=== PATIENT | male | born 1980 | race Caucasian/White ===

== ENCOUNTER 2021-03-16 12:34 | Inpatient (IN) | payer OTHER, SELFPAY ==
[~2021-03-16] VITALS: Ht 170.2 cm; Wt 68.0 kg
[2021-03-16 12:46] VITALS: BP 106/63
--- NOTE | 2021-03-16 12:59 | NUR ---
PT AMBULATED TO BED 01.
--- NOTE | 2021-03-16 12:59 | NUR ---
40/m bib self C/O COUGH,GOODE, SORE THROT,FEVER X 1.5 WEEK AND C/O SOB X 3 DAYS. COVID TESTED + 03/08/21. SEEN AT [facility] FOR COVID 19 & PNEUMONIA. O2SAT 93% AT THIS TIME. PMH: DENIES. DENIES N/V/D; SKIN IS PINK/WARM/DRY; AAOX4 WITH EVEN AND STEADY GAIT. PATIENT STATES PAIN OF 10/10 AT THIS TIME. PATIENT POSITIONED FOR COMFORT; HOB ELEVATED; BEDRAILS UP X1; BED DOWN. ER MD MADE AWARE OF PT STATUS.
--- NOTE | 2021-03-16 13:55 | NUR ---
PT RESTNG, HOB LOWERED FOR COMFORT, VSS, WILL CONTINUE TO MONITOR.
--- NOTE | 2021-03-16 14:01 | NUR ---
DR. DELUCA AT PT BEDSIDE FOR FURTHER EVALUATION.
[2021-03-16] MEDS ORDERED: DEXAMETHASONE 4 MG/ML VIAL IVP ONE (14:10)
--- NOTE | 2021-03-16 14:34 | NUR ---
MAINSPRING STRIP INSPECTOR AT PT BEDSIDE.
--- NOTE | 2021-03-16 14:43 | NUR ---
RT AT PT BEDSIDE FOR ABGS.
--- NOTE | 2021-03-16 14:54 | NUR ---
INCENDIARIES SUPERVISOR AT PT BEDSIDE.
--- NOTE | 2021-03-16 15:00 | NUR ---
PT SLEEPING, VISIBLE EQUAL RISE AND FALL OF CHEST, VSS, WILL CONTINUE TO MONITOR.
[2021-03-16 15:05] LABS: BASOPHILS % (AUTO) 0.2 % (0.0-2.0); EOSINOPHILS % (AUTO) 0.2 % (0.0-4.0); HEMOGLOBIN 13.8 g/dL (12.0-18.0); LYMPHOCYTES # (AUTO) 0.6 K/uL (2.0-11.5); LYMPHOCYTES % (AUTO) 18.8 % (20.5-51.1); MEAN CORPUSCULAR HEMOGLOBIN 30 pg (27-31); MEAN CORPUSCULAR HGB CONC 34 g/dL (33-37); MEAN CORPUSCULAR VOLUME 89.4 fL (80-94); MONOCYTES # (AUTO) 0.1 K/uL (0.8-1.0); MONOCYTES % (AUTO) 3.5 % (1.7-9.3); NEUTROPHILS # (AUTO) 2.6 K/uL (1.8-7.7); NEUTROPHILS % (AUTO) 77.3 % (42.2-75.2); PLATELET COUNT (AUTO) 109 K/uL (140-450); RED BLOOD CELL COUNT(AUTO) 4.59 MIL/uL (4.20-6.10); RED CELL DISTRIBUTION WIDTH 13.3 % (11.6-13.7); WHITE BLOOD COUNT (AUTO) 3.3 K/uL (4.8-10.8)
[2021-03-16 15:29] LABS: ALBUMIN 3.2 g/dL (3.4-5.0); ANION GAP 10.5 (8-16); CARBON DIOXIDE 29.1 mmol/L (21-32); POTASSIUM 3.6 mmol/L (3.5-5.1); TOTAL BILIRUBIN 0.3 mg/dL (0.0-1.0)
[2021-03-16 15:32] LABS: FIBRINOGEN 438 mg/dL (200-400)
[2021-03-16 15:44] LABS: D-DIMER 166 ng/ml (0-400)
--- NOTE | 2021-03-16 17:03 | NUR ---
EMPTIED 750ML OF CLEAR, YELLOW URINE WITH NO SEDIMENT PRESENT.
[2021-03-16] MEDS ORDERED: ONDANSETRON 4 MG/2 ML VIAL IVP PRN (17:25)
[2021-03-16] MEDS ORDERED: HYDROcodone/APAP 5/325 MG 1 TAB TAB PO PRN (17:25)
[2021-03-16] MEDS ORDERED: remdesivir COMMUNICATION ORDER 1 EA MISC MC PRN ×2 (17:30)
--- NOTE | 2021-03-16 17:43 | NUR ---
Patient will be admitted to care of Dr. Mcnair. Admited to TELE. Will go to room 118. Belongings list completed. Report to
--- NOTE | 2021-03-16 17:45 | NUR ---
RECEIVED PATIENT REPORT FROM ER NURSE OVER THE PHONE.
[2021-03-16 17:56] VITALS: BP 127/67
--- NOTE | 2021-03-16 17:56 | NUR ---
RECEIVED PATIENT FROM ER NURSE VIA SHERYL. PATIENT ADMITTED FOR COVID AND PNA. PT IS AOX4, ABLE TO MAKE NEEDS KNOWN. RESPIRATIONS EVEN AND UNLABORED. NO S/S OF RESPIRATORY DISTRESS. SKIN IS WARM, DRY, AND INTACT. IV SITE ON JEN 20G SALINE LOCKED. INTACT AND PATENT. ABD SOFT, FLAT AND NON-DISTENDED. BOWEL SOUNDS ACTIVE IN ALL 4 QUADRANTS. DENIES PAIN AT THE MOMENT. PLAN OF CARE DISCUSSED. SAFETY PRECAUTIONS IN PLACE. CALL LIGHT WITHIN REACH. WILL CONTINUE TO MONITOR.
[2021-03-16 18:12] LABS: ALBUMIN 3.3 g/dL (3.4-5.0); BILIRUBIN,DIRECT 0.1 mg/dL (0.0-0.3); TOTAL BILIRUBIN 0.3 mg/dL (0.0-1.0)
[2021-03-16] MEDS: DEXAMETHASONE 4 MG/ML VIAL IVP SCH (18:25)
[2021-03-16] MEDS ORDERED: cefTRIAXone 1,000 MG VIAL ONE (18:26)
[2021-03-16] MEDS ORDERED: AZITHROMYCIN 500 MG INJ VIAL IV ONE (19:08)
[2021-03-16] MEDS: AZITHROMYCIN 500 MG in DEXTROSE 5% 250 ML IV SCH (19:24)
--- NOTE | 2021-03-16 19:29 | NUR ---
ENDORSED TO PLANT HEALTH CARE TECHNICIAN NURSE FOR CONTINUITY OF CARE. PT IS STABLE.
--- NOTE | 2021-03-16 19:30 | NUR ---
RECEIVED REPORT FROM DAY SHIFT RN; PT AWAKE ALERT ORIENTED X3 FOLLOWING COMMANDS. PT AMB IN ROOM, MILD WEAKNESS NOTED. LUNGS DIMINISHED; SOB WITH EXERTION. PT FOUND TO HAVE CANNULA OFF, REINSTRUCTED TO PLACE NASAL CANNULA AND USE DEEP BREATHING TECHNIQUES. ABD SOFT NON DISTENDED. TOLERATING PO INTAKE. PT VOIDING IN RESTROOM. IV TO RUPPER ARM NOTED 20 G. BED LOCKED IN LOWEST POSITION. CALL LIGHT WITHIN REACH.
[2021-03-16 20:00] VITALS: BP 121/66
[2021-03-16] MEDS: APIXABAN 2.5 MG TAB PO SCH (20:54)
--- NOTE | 2021-03-16 21:35 | NUR ---
PT IN ROOM REQUESTING TO USE RESTROOM, FOUND TO HAVE CANNULA OFF. REINFORCED IMPORTANCE OF SUPP OXYGEN. PT AGREEABLE. WILL CONTINUE TO OBSERVE
--- NOTE | 2021-03-16 23:30 | NUR ---
ASSISTED PT TO BATHROOM, PT HELPED BACK TO BED VOIDED X1, PT STATED HE FELT SOB VS CHECKED, O2 78 % ON ROOM AIR, NASAL CANNULA PLACED BACK ON PT 2L PT 84-86%. INCREASED TO 4L PT NOW 91%. WILL CONTINUE TO OBSERVE.
[2021-03-17] VITALS: BP 118/65
--- NOTE | 2021-03-17 02:15 | NUR ---
PT HAS EYES CLOSED; AROUSABLE, DENIES CP SOB. WILL CONTINUE TO OBSERVE
--- NOTE | 2021-03-17 04:18 | NUR ---
PT AMB TO RESTROOM NO S/S OF DISTRESS NOTED.
[2021-03-17 06:12] VITALS: BP 121/71
--- NOTE | 2021-03-17 06:17 | NUR ---
REINFORCED NEED FOR SUPPLEMENTAL OXYGEN, PT FORGETS, AND TAKES OFF CANNULA. PT AGREEABLE TO KEEP IT ON, WILL CONTINUE TO OBSERVE
[2021-03-17 06:41] LABS: BASOPHILS % (AUTO) 0.2 % (0.0-2.0); HEMATOCRIT 40.7 % (36-52); HEMOGLOBIN 13.8 g/dL (12.0-18.0); LYMPHOCYTES # (AUTO) 0.4 K/uL (2.0-11.5); LYMPHOCYTES % (AUTO) 9.5 % (20.5-51.1); MEAN CORPUSCULAR HEMOGLOBIN 30 pg (27-31); MEAN CORPUSCULAR HGB CONC 34 g/dL (33-37); MONOCYTES # (AUTO) 0.1 K/uL (0.8-1.0); MONOCYTES % (AUTO) 2.3 % (1.7-9.3); PLATELET COUNT (AUTO) 131 K/uL (140-450); RED BLOOD CELL COUNT(AUTO) 4.57 MIL/uL (4.20-6.10); RED CELL DISTRIBUTION WIDTH 13.2 % (11.6-13.7); WHITE BLOOD COUNT (AUTO) 4.6 K/uL (4.8-10.8)
--- NOTE | 2021-03-17 07:23 | NUR ---
REPORT GIVEN TO DAY SHIFT FOR CONTINUITY OF CARE
--- NOTE | 2021-03-17 07:23 | NUR ---
RECEIVED REPORT FROM MAGNETO REPAIRER NURSE FOR CONTINUITY OF CARE, POC DISCUSSED. PT IS RESTING IN BED WITH NO ACUTE S/S WITH 4L O2 NC ON. PT DENIES PAIN AT THIS TIME. PT IS IS ALERT AND ORIENTED X4. PT CHEST RISING AND FALLING EVEN AND UNLABORED WITH NO S/S OF SOB. PT HAS A RIGHT AC 20G RUNNING TKO. ALL SAFETY MEASURES IN PLACE. CALL LIGHT WITHIN REACH. WILL CONTINUE TO MONITOR.
[2021-03-17 07:30] LABS: ALBUMIN 3.2 g/dL (3.4-5.0); BILIRUBIN,DIRECT 0.1 mg/dL (0.0-0.3); TOTAL BILIRUBIN 0.2 mg/dL (0.0-1.0)
[2021-03-17 07:31] LABS: ALBUMIN 3.2 g/dL (3.4-5.0); ANION GAP 13.3 (8-16); CARBON DIOXIDE 26.7 mmol/L (21-32); CREATININE 0.9 mg/dL (0.6-1.3); MAGNESIUM 2.2 mg/dL (1.8-2.4); TOTAL BILIRUBIN 0.2 mg/dL (0.0-1.0)
[2021-03-17 08:00] VITALS: BP 116/73
--- NOTE | 2021-03-17 08:08 | NUR ---
SATURATION FLUCTUATING 88%-89% ON SUPPLEMENTAL OXYGEN AT 4 LPM VIA NC INCREASED FIO2 TO 5 LPM
--- NOTE | 2021-03-17 08:46 | NUR ---
PATIENT HAS BEEN SCREENED AND CATEGORIZED MODERATE NUTRITION RISK. PATIENT WILL BE SEEN WITHIN 3-5 DAYS OF ADMISSION. 03/19/21 03/21/[address]
--- NOTE | 2021-03-17 09:48 | NUR ---
KAYODE MEDICATION ADMINISTERED PER MD ORDER. PT EDUCATION PROVIDED. PT IS ON 5L NC SATING AT 94%. PT EDUCATION PROVIDED ON IMPORTANCE OF KEEPING OXYGEN ON. PT REPORTS SOB UPON AMBULATING. PT REPORTS ALL NEEDS ARE MET AT THIS TIME. PT SAFETY MEASURES IN PLACE, CALL LIGHT WITHIN REACH. WILL CONTINUE TO MONITOR.
[2021-03-17] MEDS: APIXABAN 2.5 MG TAB PO SCH ×2 (09:53→21:00)
--- NOTE | 2021-03-17 11:08 | NUR ---
ROUNDED ON PT, PT IS RESTING COMFORTABLE IN BED WITH NO ACUTE S/S. PT IS ON 5L NC SATING AT 94%.
[2021-03-17 12:00] VITALS: BP 159/56
[2021-03-17] MEDS ORDERED: REMDESIVIR. 200 MG in NACL 0.9% 100 ML IV SCH (13:00)
[2021-03-17] MEDS ORDERED: remdesivir CLINICAL MONITORING 1 EA MISC MC PRN (13:00)
--- NOTE | 2021-03-17 13:29 | NUR ---
SCD MEDICATION ADMINISTERED PER MD ORDER. PT TOLERATED ADMINISTRATION. ALL SAFETY MEASURES IN PLACE. CALL LIGHT WITHIN REACH. WILL CONTINUE TO MONITOR
--- NOTE | 2021-03-17 14:08 | NUR ---
PROVIDED PT WITH A BEDSIDE COMMODE TO DECREASE DISTANCE PT HAS TO AMBULATE TO USE THE RESTROOM. EVEN WITH O2 MACHINE PROGRAMMER, BEDSIDE COMMODE IS MORE INDICATED TO DECREASE SOB.
[2021-03-17 16:00] VITALS: BP 135/67
[2021-03-17] MEDS: DEXAMETHASONE 4 MG/ML VIAL IVP SCH (17:36)
--- NOTE | 2021-03-17 17:54 | NUR ---
KAYODE MEDICATION ADMINISTERED PER MD ORDER. PT TOLERATED ADMINISTRATION. ALL SAFETY MEASURES IN PLACE. CALL LIGHT WITHIN REACH. WILL CONTINUE TO MONITOR.
[2021-03-17] MEDS: AZITHROMYCIN 500 MG in DEXTROSE 5% 250 ML IV SCH (18:21)
--- NOTE | 2021-03-17 18:32 | NUR ---
PT HAS BEEN TRANSFERRED FROM ROOM 118 TO ROOM 130. 118 TO HOT AND UNABLE TO COOL ROOM DOWN. PT WAS TRANSFERRED IN A WHEELCHAIR AND PORTABLE OXYGEN TANK. PT WAS PLACED BACK ON 6L NC. PT REPORTED CONTINUOUS COUGHING AND SOB DURING TRANSFER BUT REMAINED STABLE. PT CONTINUED TO WEAR FACEMASK THROUGH TRANSFER. PT WAS PLACED IN A NEW ISOLATION ROOM. PT BACK IN BED AND STABLE, BACK ON 6L NC WITH IV FLUIDS RUNNING. ALL BELONGINGS TRANSFERRED WITH PATIENT. PT O2 SATURATION BACK TO 92%. BEDSIDE COMMODE PLACED NEXT TO PT, PT PROVIDED WITH FRESH WATER AND WIPES. PT IS STABLE. ALL SAFETY MEASURES IN PLACE. CALL LIGHT WITHIN REACH. WILL CONTINUE TO MONITOR.
--- NOTE | 2021-03-17 19:02 | NUR ---
PT WILL BE ENDORSED TO PUTTY AND PATCH WORKER NURSE FOR CONTINUITY OF CARE IN STABLE CONDITION, POC DISCUSSED.
--- NOTE | 2021-03-17 19:10 | NUR ---
RECEIVED PATIENT FROM AM SHIFT NURSE FOR CONTINUITY OF CARE. ALERT, ABLE TO MAKE NEEDS KNOWN. RESPIRATIONS EVEN, SLIGHTLY LABORED UPON EXERTION. NO S/S RESPIRATORY DISTRESS. CONTINUES ON O2 6L VIA NC, O2 SAT 93%. S1/S2 AUSCULTATED. TELE MONITORING. DENIES PAIN. SKIN WARM, DRY. IV SITE TO RIGHT AC 20G PATENT/INTACT, INFUSING FLUIDS WELL. ABDOMEN SOFT, NONTENDER, NONDISTENDED. BOWEL SOUNDS ACTIVE x4 QUADRANTS. PATIENT IS CONTINENT OF B/B. CALL LIGHT IN REACH. PLAN OF CARE DISCUSSED. ISOLATION PRECAUTIONS OBSERVED. SAFETY PRECAUTIONS IN PLACE.
[2021-03-17 20:00] VITALS: BP 134/74
--- NOTE | 2021-03-17 21:45 | NUR ---
DUE MEDS GIVEN. NO S/S RESPIRATORY DISTRESS. O2SAT 93%. DENIES PAIN. PATIENT IS CLEAN/DRY. CALL LIGHT IN REACH. ISOLATION PRECAUTIONS OBSERVED. SAFETY PRECAUTIONS IN PLACE.
[2021-03-17] MEDS ORDERED: TEMAZEPAM 15 MG CAP ONE (22:00)
[2021-03-17] MEDS: TEMAZEPAM 15 MG CAP PO SCH (22:03)
--- NOTE | 2021-03-17 23:27 | NUR ---
PLACED PATIENT ON O2 10L VIA OXIMIZER. O2SAT 91-92%. RT AWARE. FREQUENT ROUNDS BY ALL STAFF. CALL LIGHT IN REACH. ISOLATION PRECAUTIONS OBSERVED. SAFETY PRECAUTIONS IN PLACE.
[2021-03-18] VITALS: BP 145/69
--- NOTE | 2021-03-18 01:06 | NUR ---
MADE ROUNDS. PATIENT IS ASLEEP. NO S/S RESPIRATORY DISTRESS. PATIENT IS CLEAN/DRY. CALL LIGHT IN REACH. ISOLATION PRECAUTIONS OBSERVED. SAFETY PRECAUTIONS IN PLACE.
--- NOTE | 2021-03-18 03:11 | NUR ---
PATIENT IS ASLEEP. NO S/S RESPIRATORY DISTRESS. PATIENT IS CLEAN/DRY. CALL LIGHT IN REACH. SAFETY PRECAUTIONS IN PLACE. ISOLATION PRECAUTIONS OBSERVED BY ALL STAFF.
[2021-03-18 04:00] VITALS: BP 93/59
--- NOTE | 2021-03-18 05:05 | NUR ---
ALL NEEDS ANTICIPATED AND MET. NO S/S RESPIRATORY DISTRESS. NO C/O PAIN. PATIENT IS CLEAN/DRY. CALL LIGHT IN REACH. SAFETY PRECAUTIONS IN PLACE. ISOLATION PRECAUTIONS OBSERVED BY ALL STAFF.
--- NOTE | 2021-03-18 07:14 | NUR ---
ENDORSED PATIENT TO AM SHIFT NURSE FOR CONTINUITY OF CARE.
--- NOTE | 2021-03-18 07:24 | NUR ---
PT ENDORSED BY APPLICATION ARCHITECT FOR CONTINUITY OF CARE, POC DISCUSSED. PT IS RESTING IN BED. EDUCATED ON PRONE POSITION, PT STATES HE FEELS WORSE LIKE THAT. EDUCATED ON IMPORTANCE OF THE POSITION, PT STATED HE WILL TRY AFTER BREAKFAST. PT IS ON OXIMETER AT 10L. SPOKE WITH JIHAN MORIN, WILL PLACE PT ON HIGH FLOW. PT IS CURRENTLY SATING AT 90%. PT PLACED ON CONTINUOUS O2 MONITOR AND TELE MONITOR. ALL SAFETY MEASURES IN PLACE, CALL LIGHT WITHIN REACH. WILL CONTINUE TO MONITOR.
[2021-03-18 07:30] LABS: ALBUMIN 3.1 g/dL (3.4-5.0); BILIRUBIN,DIRECT 0.1 mg/dL (0.0-0.3); TOTAL BILIRUBIN 0.2 mg/dL (0.0-1.0)
--- NOTE | 2021-03-18 07:58 | NUR ---
ASLEEP EASILY AWAKENS GOOD CHEST RISE AIRWAY PATENT NO DISTRESS NOTED BREATH SOUNDS DECREASED BILATERAL SINCE 03/16/21 DESCENDING SATURATION TO 89% WITH INCREASED OXYGEN USE TO 11 LPM VIA OXYMIZER PATIENT CANDIDATE FOR HIGH FLOW NASAL CANNULA
[2021-03-18 08:00] VITALS: BP 124/73
--- NOTE | 2021-03-18 08:03 | NUR ---
PLACED ON A VAPOTHERM HIGH FLOW NASAL CANNULA NOTED PLUGGED INTO RED OUTLET TOLERATING WELL WITHOUT COMPLICATIONS NOTED CARRIE/RN NOTIFIED WITH EDUCATION
--- NOTE | 2021-03-18 08:21 | NUR ---
PT WAS PLACED ON HIGH FLOW AT 30FIO2 SATING AT 94%.
[2021-03-18] MEDS: APIXABAN 2.5 MG TAB PO SCH ×2 (08:52→20:33)
--- NOTE | 2021-03-18 09:03 | NUR ---
KAYODE MEDICATION ADMINISTERED, BREAKFAST PLACED AT BEDSIDE. PT REPORTS HIGH FLOW MAKING HIM LESS SHORT OF BREATH. ALL SAFETY MEASURES IN PLACE, CALL LIGHT WITHIN REACH. WILL CONTINUE TO MONITOR.
--- NOTE | 2021-03-18 10:05 | NUR ---
MARLEN FROM LAB CALLED; PCR CAME BACK POSITIVE. NOT REPORTED TO MD DUE TO PT RAPID POSITIVE AND ALL COVID PRECAUTIONS AND PROTOCOL IS IN PLACE.
--- NOTE | 2021-03-18 10:45 | NUR ---
RECEIVED REPORT FROM SANIYA EM
[2021-03-18 12:00] VITALS: BP 121/53
[2021-03-18] MEDS: REMDESIVIR. 100 MG in NACL 0.9% 100 ML IV SCH (12:52)
--- NOTE | 2021-03-18 15:02 | NUR ---
CALL FROM BAYRON/RN SATURATION DESCENDING TO 83% ON HIGH FLOW NASAL CANNULA AT 80%
--- NOTE | 2021-03-18 15:02 | NUR ---
WITH COUGHING EPISODE AND DESATURATION TO 83% ON HIFLOW 30L FIO2 80%. HOB ELEVATED TO HIGH FOWLERS. INSTRUCTED PT TO RELAX AND BREATH THROUGH HIS NOSE. CALLED RT, INCREASED FLOW TO 35L AND FIO2 TO 100%.
--- NOTE | 2021-03-18 15:30 | NUR ---
NO RESPIRATORY DISTRESS, NO C/O PAIN, O2SAT 93-95%
[2021-03-18 16:00] VITALS: BP 123/77
--- NOTE | 2021-03-18 16:32 | NUR ---
DC PLANNIN YRS OLD MALE PATIENT WAS ADMITTED FROM HOME WITH A DX OF COVID PNEUMONIA. PATIENT HAS NO MEDICAL HX.CXR SHOWED PATCHY CONSOLIDATIONS CONCERNING FOR COVID PNEUMONIA. RAPID AND PCR COVID TEST POSITIVE. ON 15L NRB SATING 90% . ADMINISTERED REMDESIVIR IV AZITHROMYCIN AND ROCEPHIN IV ABX Addendum: 03/24/21 at 1650 by Deanne Earl RN DC PLANNING PATIENT IS STILL ON 15LHF, SATING 94%. PULMO AND ID FOLLOWING. DC PLAN TO WEAN OF OXYGEN. CM TO FOLLOW
[2021-03-18] MEDS: DEXAMETHASONE 4 MG/ML VIAL IVP SCH (16:53)
--- NOTE | 2021-03-18 18:26 | NUR ---
ALL NEEDS MET AT THIS TIME, NO RESPIRATORY DISTRESS. NO C/O PAIN
[2021-03-18 20:00] VITALS: BP 131/65
[2021-03-18] MEDS: LORazepam 2 MG/ML VIAL IVP PRN (20:30)
[2021-03-18] MEDS: TEMAZEPAM 15 MG CAP PO SCH (22:17)
--- NOTE | 2021-03-19 00:13 | NUR ---
DESATURATION TO 82% PATIENT TOOK OFF HIS HI-FLOW, EDUCATION TO KEEP OXYGEN IN PLACE. ALEXIS GAITAN RN
[2021-03-19 00:15] VITALS: BP 112/65
[2021-03-19 04:25] VITALS: BP 113/61
[2021-03-19 06:48] LABS: BILIRUBIN,DIRECT 0.1 mg/dL (0.0-0.3); TOTAL BILIRUBIN 0.3 mg/dL (0.0-1.0)
--- NOTE | 2021-03-19 08:15 | NUR ---
RECEIVED REPORT FROM PM RN. PT RESTING IN BED ASLEEP, NO SIGNS OF RESP DISTRESS NOTED. PATIENT REMAINS ON 35L HIGH LAYNE. LOOKS COMFORTABLE. IV WNL, RUNNING AT KVO. BED AT LOWEST, CALL LIGHT AT REACH.
[2021-03-19 08:25] VITALS: BP 119/64
[2021-03-19] MEDS: APIXABAN 2.5 MG TAB PO SCH ×2 (09:00→21:38)
[2021-03-19 12:03] VITALS: BP 130/55
[2021-03-19 12:51] LABS: ANION GAP 12.7 (8-16); CARBON DIOXIDE 26.5 mmol/L (21-32); CREATININE 0.7 mg/dL (0.6-1.3); POTASSIUM 4.2 mmol/L (3.5-5.1)
[2021-03-19] MEDS: REMDESIVIR. 100 MG in NACL 0.9% 100 ML IV SCH (13:00)
[2021-03-19] MEDS: LORazepam 2 MG/ML VIAL IVP PRN (14:06)
[2021-03-19 16:23] VITALS: BP 105/72
[2021-03-19] MEDS: DEXAMETHASONE 4 MG/ML VIAL IVP SCH (16:45)
--- NOTE | 2021-03-19 19:13 | NUR ---
PT REMAINED STABLE THROUGH SHIFT. ONLY COMPLAINTS WERE ANXIETY, GAVE PT PRN ATIVAN TO HELP CONTROL IT. IT HELPS DECREASED ANXIETY.REMDESEVIR WAS GIVEN. ALL NEEDS MET FOR TODAY. GAVE REPORT TO PM RN .
[2021-03-19 20:17] VITALS: BP 121/66
[2021-03-19] MEDS: TEMAZEPAM 15 MG CAP PO SCH (21:39)
--- NOTE | 2021-03-20 00:21 | NUR ---
OXYGEN SATURATION WITHOUT HI FLOW IS 68% ON ROOM AIR AFTER USING BEDSIDE COMMODE INDEPENDENTLY AND GETTING BACK TO BED. PATIENT REMOVED OWN IV WHILE GOING TO BEDSIDE COMMODE. ALEXIS GAITAN RN
[2021-03-20 00:23] VITALS: BP 117/65
[2021-03-20 04:45] VITALS: BP 108/54
[2021-03-20 07:11] LABS: ALBUMIN 3.2 g/dL (3.4-5.0); ANION GAP 14.7 (8-16); CARBON DIOXIDE 27.3 mmol/L (21-32); CREATININE 0.8 mg/dL (0.6-1.3); TOTAL BILIRUBIN 0.4 mg/dL (0.0-1.0)
--- NOTE | 2021-03-20 07:23 | NUR ---
HANDOFF WITH MANAV FLORES. ALEXIS GAITAN RN
--- NOTE | 2021-03-20 07:24 | NUR ---
Received report from pm nurse Melvin. Pt resting in bed, awake, respirations even & nonlabored on 35L/min hiflow n/c. RT at bedside providing care. Call light within reach.
[2021-03-20 08:00] VITALS: BP 112/65
[2021-03-20 11:55] LABS: BASOPHILS # (AUTO) 0.1 K/uL (0.00-0.22); BASOPHILS % (AUTO) 0.8 % (0.0-2.0); EOSINOPHILS % (AUTO) 0.1 % (0.0-4.0); HEMATOCRIT 45.3 % (36-52); HEMOGLOBIN 15.4 g/dL (12.0-18.0); LYMPHOCYTES # (AUTO) 1.3 K/uL (2.0-11.5); LYMPHOCYTES % (AUTO) 12.6 % (20.5-51.1); MEAN CORPUSCULAR HEMOGLOBIN 30 pg (27-31); MEAN CORPUSCULAR HGB CONC 34 g/dL (33-37); MEAN CORPUSCULAR VOLUME 88.3 fL (80-94); MONOCYTES # (AUTO) 0.7 K/uL (0.8-1.0); MONOCYTES % (AUTO) 6.7 % (1.7-9.3); NEUTROPHILS # (AUTO) 8.1 K/uL (1.8-7.7); NEUTROPHILS % (AUTO) 79.8 % (42.2-75.2); PLATELET COUNT (AUTO) 296 K/uL (140-450); RED BLOOD CELL COUNT(AUTO) 5.13 MIL/uL (4.20-6.10); RED CELL DISTRIBUTION WIDTH 13.5 % (11.6-13.7); WHITE BLOOD COUNT (AUTO) 10.2 K/uL (4.8-10.8)
[2021-03-20 12:00] VITALS: BP 124/69
[2021-03-20] MEDS: REMDESIVIR. 100 MG in NACL 0.9% 100 ML IV SCH (12:59)
[2021-03-20] MEDS: LORazepam 2 MG/ML VIAL IVP PRN ×2 (12:59→20:36)
--- NOTE | 2021-03-20 12:59 | NUR ---
Pt c/o feeling anxious about his condition and he is worried about his family at home. Active listening, and reassurance provided. Lorazepam administered IVP. Educated patient on med side effects of dizziness and drowsiness. Patient verbalized understanding.
[2021-03-20] MEDS: APIXABAN 2.5 MG TAB PO SCH ×2 (13:20→20:37)
--- NOTE | 2021-03-20 14:00 | NUR ---
Pt resting in bed, talking on the phone with family, respirations even & nonlabored on O2 @ 35L/min via hiflow n/c. Call light within reach.
--- NOTE | 2021-03-20 14:27 | NUR ---
03/20/21 RD INITIAL ASSESSMENT COMPLETED PLEASE REFER TO NUTRITION ASSESSMENT UNDER CARE ACTIVITY FOR ESTIMATED NUTRITIONAL NEEDS. 1. CONTINUE REGULAR DIET TOLERATED 2. RECOMMEND ENSURE BID, VITAMIN C 500 MG DAILY, VITAMIN D, AND MULTIVITAMIN ONCE DAILY 3. RD PROVIDED NUTRITION EDUCATION ON COVID-[address] TO FOLLOW-UP 3-5 DAYS, MODERATE RISK MABLE SEBASTIAN RD
[2021-03-20 16:00] VITALS: BP 105/70
[2021-03-20] MEDS: DEXAMETHASONE 4 MG/ML VIAL IVP SCH (17:12)
[2021-03-20 20:00] VITALS: BP 106/61
[2021-03-20] MEDS: TEMAZEPAM 15 MG CAP PO SCH (20:40)
--- NOTE | 2021-03-20 20:47 | NUR ---
PATIENT IS EXPERIENCING ANXIETY WITH THINKING ABOUT HIS SITUATION AT THIS TIME. REQUEST FOR ATIVAN GIVEN. ALEXIS GAITAN RN
--- NOTE | 2021-03-20 23:02 | NUR ---
INCONTINENCE EPISODE PERIANAL CARE AT THIS TIME. PARTIAL LINEN CHANGE, GOWN CHANGE, NEW UNDERGARMENT. ALEXIS GAITAN RN
[2021-03-21] VITALS: BP 104/64
[2021-03-21 04:00] VITALS: BP 100/68
[2021-03-21 06:12] LABS: HEMOGLOBIN 14.9 g/dL (12.0-18.0); LYMPHOCYTES % (AUTO) 10.5 % (20.5-51.1); MEAN CORPUSCULAR HEMOGLOBIN 30 pg (27-31); MEAN CORPUSCULAR HGB CONC 34 g/dL (33-37); MEAN CORPUSCULAR VOLUME 88.6 fL (80-94); MONOCYTES # (AUTO) 0.7 K/uL (0.8-1.0); MONOCYTES % (AUTO) 6.9 % (1.7-9.3); NEUTROPHILS # (AUTO) 7.9 K/uL (1.8-7.7); NEUTROPHILS % (AUTO) 82.6 % (42.2-75.2); PLATELET COUNT (AUTO) 316 K/uL (140-450); RED BLOOD CELL COUNT(AUTO) 4.97 MIL/uL (4.20-6.10); RED CELL DISTRIBUTION WIDTH 13.3 % (11.6-13.7); WHITE BLOOD COUNT (AUTO) 9.5 K/uL (4.8-10.8)
--- NOTE | 2021-03-21 07:27 | NUR ---
HANDOFF WITH MANAV SALINAS. ALEXIS GAITAN RN
--- NOTE | 2021-03-21 07:30 | NUR ---
RECEIVED PATIENT FROM REMOTE PILOT OPERATOR NURSE FOR CONTINUITY OF CARE. PT IS AOX4, ABLE TO MAKE NEEDS KNOWN. RESPIRATIONS EVEN AND UNLABORED. ON HI-FLOW WITH NO S/S OF RESPIRATORY DISTRESS. SKIN IS WARM, DRY, AND INTACT. IV SITE ON LFA 22G SALINE LOCKED. INTACT AND PATENT. DENIES PAIN AT THE MOMENT. PLAN OF CARE DISCUSSED. SAFETY PRECAUTIONS IN PLACE. CALL LIGHT WITHIN REACH. WILL CONTINUE TO MONITOR.
[2021-03-21 07:48] LABS: ALBUMIN 3.1 g/dL (3.4-5.0); ANION GAP 17.5 (8-16); CARBON DIOXIDE 22.8 mmol/L (21-32); CREATININE 0.7 mg/dL (0.6-1.3); POTASSIUM 4.3 mmol/L (3.5-5.1); TOTAL BILIRUBIN 0.4 mg/dL (0.0-1.0)
[2021-03-21 08:00] VITALS: BP 109/64
[2021-03-21] MEDS: APIXABAN 2.5 MG TAB PO SCH ×2 (08:40→21:19)
[2021-03-21] MEDS: ASCORBIC ACID 500 MG TAB PO SCH (08:41)
[2021-03-21] MEDS: MULTIVITAMIN 1 TAB PO SCH (08:41)
[2021-03-21] MEDS: VITAMIN D 400 IU TAB PO SCH (08:41)
--- NOTE | 2021-03-21 09:15 | NUR ---
ALL SCHEDULED MEDS GIVEN. PT IS STABLE. NO RESPIRATORY DISTRESS NOTED. WILL CONTINUE TO MONITOR.
--- NOTE | 2021-03-21 11:25 | NUR ---
CHECKED ON PATIENT. PATIENT IS STABLE. DENIES PAIN AND NO SOB NOTED. WILL CONTINUE TO MONITOR.
[2021-03-21 12:00] VITALS: BP 109/67
[2021-03-21] MEDS: REMDESIVIR. 100 MG in NACL 0.9% 100 ML IV SCH (12:46)
--- NOTE | 2021-03-21 13:09 | NUR ---
ALL SCHEDULED MEDS GIVEN. PT IS STABLE. NO DISTRESS NOTED. WILL CONTINUE TO MONITOR.
--- NOTE | 2021-03-21 15:45 | NUR ---
CHECKED ON PATIENT. PATIENT IS STABLE. NO DISTRESS NOTED. WILL CONTINUE TO MONITOR.
[2021-03-21 16:00] VITALS: BP 135/75
[2021-03-21] MEDS: LORazepam 2 MG/ML VIAL IVP PRN (16:18)
--- NOTE | 2021-03-21 16:18 | NUR ---
PATIENT COMPLAINED OF ANXIETY ATTACK. ADMINISTERED ATIVAN PRN PER MD ORDERED.
--- NOTE | 2021-03-21 17:00 | NUR ---
O2 SATURATION WAS AT 99%. TITRATED HI FLOW DOWN TO 30 L/MIN 80% FIO2. PT O2 SATURATION AT 94%. NO DISTRESS NOTED. WILL CONTINUE TO MONITOR.
[2021-03-21] MEDS: DEXAMETHASONE 4 MG/ML VIAL IVP SCH (18:07)
--- NOTE | 2021-03-21 18:15 | NUR ---
ALL SCHEDULED MEDS GIVEN. PT IS STABLE. NO DISTRESS NOTED. WILL CONTINUE TO MONITOR.
--- NOTE | 2021-03-21 19:25 | NUR ---
ENDORSED TO CORN PRESS OPERATOR NURSE FOR CONTINUITY OF CARE. PT IS STABLE.
[2021-03-21 20:00] VITALS: BP 101/59
[2021-03-21] MEDS: TEMAZEPAM 15 MG CAP PO SCH (21:17)
[2021-03-22] VITALS: BP 111/68
[2021-03-22 04:41] VITALS: BP 96/56
[2021-03-22 07:11] LABS: BASOPHILS % (AUTO) 0.1 % (0.0-2.0); EOSINOPHILS % (AUTO) 0.1 % (0.0-4.0); HEMATOCRIT 42.6 % (36-52); HEMOGLOBIN 14.6 g/dL (12.0-18.0); LYMPHOCYTES # (AUTO) 0.8 K/uL (2.0-11.5); LYMPHOCYTES % (AUTO) 7.6 % (20.5-51.1); MEAN CORPUSCULAR HEMOGLOBIN 30 pg (27-31); MEAN CORPUSCULAR HGB CONC 34 g/dL (33-37); MEAN CORPUSCULAR VOLUME 87.1 fL (80-94); MONOCYTES # (AUTO) 0.6 K/uL (0.8-1.0); MONOCYTES % (AUTO) 5.8 % (1.7-9.3); NEUTROPHILS # (AUTO) 9.1 K/uL (1.8-7.7); NEUTROPHILS % (AUTO) 86.4 % (42.2-75.2); PLATELET COUNT (AUTO) 331 K/uL (140-450); RED BLOOD CELL COUNT(AUTO) 4.89 MIL/uL (4.20-6.10); RED CELL DISTRIBUTION WIDTH 12.9 % (11.6-13.7); WHITE BLOOD COUNT (AUTO) 10.5 K/uL (4.8-10.8)
--- NOTE | 2021-03-22 07:36 | NUR ---
HANDOFF WITH MANAV SALINAS. ALEXIS GAITAN RN
--- NOTE | 2021-03-22 07:36 | NUR ---
RECEIVED PATIENT FROM CITY EDITOR NURSE FOR CONTINUITY OF CARE. PT IS AOX4, ABLE TO MAKE NEEDS KNOWN. RESPIRATIONS EVEN AND UNLABORED. ON HI-FLOW WITH NO S/S OF RESPIRATORY DISTRESS. SKIN IS WARM, DRY, AND INTACT. IV SITE ON LFA 22G SALINE LOCKED. INTACT AND PATENT. DENIES PAIN AT THE MOMENT. PLAN OF CARE DISCUSSED. SAFETY PRECAUTIONS IN PLACE. CALL LIGHT WITHIN REACH. WILL CONTINUE TO MONITOR.
[2021-03-22 08:00] VITALS: BP 105/62
--- NOTE | 2021-03-22 08:20 | NUR ---
ENDORSED TO MANAV KOTHARI FOR CONTINUITY OF CARE. PT IS STABLE.
--- NOTE | 2021-03-22 08:21 | NUR ---
RECEIVED REPORT BRAD EM FOR CONTINUITY OF CARE, POC DISCUSSED. PT IS ALERT AND ORIENTED X4. PT IS RESTING IN BED WITH CHEST RISING AND FALLING WITH NO S/S OF SOB. PT IS ON 85% FIO2 30 HIGH FLOW NC. PT IS SATING AT 90%. PT SKIN INTACT, WITH A LEFT FA 22G SALINE LOCK. PT IS ON ALL COVID PRECAUTIONS. PT ON TELE MONITOR SHOWING 87. ALL SAFETY MEASURES IN PLACE, CALL LIGHT WITHIN REACH. WILL CONTINUE TO MONITOR.
[2021-03-22] MEDS: ASCORBIC ACID 500 MG TAB PO SCH (09:38)
[2021-03-22] MEDS: VITAMIN D 400 IU TAB PO SCH (09:38)
[2021-03-22] MEDS: MULTIVITAMIN 1 TAB PO SCH (09:38)
[2021-03-22] MEDS: APIXABAN 2.5 MG TAB PO SCH ×2 (09:40→21:50)
--- NOTE | 2021-03-22 09:51 | NUR ---
KAYODE MEDICATION ADMINISTERED PER MD ORDER. PT TOLERATED ADMINISTRATION. PT IS STABLE WITH CHEST RISING AND FALLING SATING AT 90%. ALL SAFETY MEASURES IN PLACE, CALL LIGHT WITHIN REACH WILL CONTINUE TO MONITOR.
--- NOTE | 2021-03-22 10:57 | NUR ---
PT IS RESTING COMFORTABLE IN BES WITH NO ACUTE S/S OF DISTRESS. ALL SAFETY MEASURES IN PLACE. CALL LIGHT WITHIN REACH. WILL CONTINUE TO MONITOR.
[2021-03-22 12:00] VITALS: BP 104/68
--- NOTE | 2021-03-22 13:28 | NUR ---
PT IS RESTING IN BED WITH NO S/S OF ACUTE DISTRESS. PT ON HIGH FLOW SATING AT 91%. PT ON TELE MONITOR SHOWING SINUS RHYTHM
--- NOTE | 2021-03-22 14:49 | NUR ---
ROUNDED ON PT, PT IS RESTING IN BED WITH NO ACUTE S/S OF DISTRESS. PT IS SATING AT 89% WITH CHEST RISING AND FALLING EVEN AND UNLABORED. ALL SAFETY MEASURES IN PLACE, CALL LIGHT WITHIN REACH. WILL CONTINUE TO MONITOR.
[2021-03-22 16:00] VITALS: BP 100/61
[2021-03-22] MEDS: DEXAMETHASONE 4 MG/ML VIAL IVP SCH (16:59)
--- NOTE | 2021-03-22 17:09 | NUR ---
KAYODE MEDICATION ADMINISTERED PER MD ORDER. PT TOLERATED ADMINISTRATION. PT IS RESTING IN BED WITH CHEST RISING AND FALLING EVEN AND UNLABORED SATING AT 90%. ALL SAFETY MEASURES IN PLACE. CALL LIGHT WITHIN REACH. WILL CONTINUE TO MONITOR.
--- NOTE | 2021-03-22 18:21 | NUR ---
PT HAD 1 BM ON BEDSIDE COMMODE. PT WATER REPLENISHED. PT IS SATING AT 90%. EDUCATED PT ON NEEDS FOR DISCHARGE AND ANSWERED PTS QUESTION. PT REPORTS ALL NEEDS MET AT THIS TIME.
--- NOTE | 2021-03-22 18:36 | NUR ---
NOTIFIED THE ATTENDING MD OF THE PTS REPORT OF DIFFICULTY SLEEPING. AWAITING FOR RESPONDS FROM
--- NOTE | 2021-03-22 19:02 | NUR ---
PT IS STABLE. PT ENDORSED TO VALVE MAKER NURSE FOR CONTINUITY OF CARE. POC DISCUSSED.
[2021-03-22 20:00] VITALS: BP 104/60
--- NOTE | 2021-03-22 20:57 | NUR ---
Assumed care. A/O. Able to verbalize needs. He claims to be frustrated. He claims that nothing has been or is being done for him. We have reoriented him to the to all the medical treatments he has received so far, to all the care that has been provided so far. Our goal has been to make him understand the we do care about him. We have reassured him that our goal is to get him well. He seems relaxed now, after this lengthy conversation. He claims to have insomnia presently. We shall contact the attending physician to get him a sleep aide. He seems to be on the edge after night of minimal or no sleep at all. He has been educated on the importance of the incentive spirometry, and how, and when and how often to use it. He is able to go up to 500, and he verbalized understanding. Will contact the attending physician for the sleep aide.
[2021-03-22] MEDS: TEMAZEPAM 15 MG CAP PO SCH (21:44)
[2021-03-23] VITALS: BP 115/58
[2021-03-23 04:00] VITALS: BP 111/60
[2021-03-23 07:13] LABS: ALBUMIN 2.9 g/dL (3.4-5.0); ANION GAP 10.1 (8-16); CARBON DIOXIDE 26.9 mmol/L (21-32); CREATININE 0.7 mg/dL (0.6-1.3); TOTAL BILIRUBIN 0.3 mg/dL (0.0-1.0)
--- NOTE | 2021-03-23 07:22 | NUR ---
Restoril was administered last night 2/2 c/o insomnia. He claims not to have slept well. Endorsed to AM RN to have the MD increase the sleep aide dose or something.
--- NOTE | 2021-03-23 07:28 | NUR ---
PT BEEN ENDORSED BY RAZOR GRINDER NURSE FOR CONTINUITY OF CARE, POC DISCUSSED. PT IS RESTING IN SEMI FOWLERS POSITION, ON HIGH FLOW NASAL CANNULA AT 30 SATING AT 89%. PT CHEST RISING AND FALLING EVEN AND UNLABORED, NO S/S OF SOB. PT ON TELE MONITOR. PT REPORTS NEEDING TO SHOWER, EDUCATED PT ON NEEDING TO STAY IN ROOM AND KEEPING O2 ON. INFORMED PT ON BRINGING CLEANING SUPPLIES TO PT TO ASSIST WITH CLEANING. ALL COVID MEASURES IN PLACE, ALL SAFETY MEASURES IN PLACE. CALL LIGHT WITHIN REACH. WILL CONTINUE TO MONITOR.
[2021-03-23 08:00] VITALS: BP 127/63
[2021-03-23] MEDS: MULTIVITAMIN 1 TAB PO SCH (08:36)
[2021-03-23] MEDS: ASCORBIC ACID 500 MG TAB PO SCH (08:37)
[2021-03-23] MEDS: VITAMIN D 400 IU TAB PO SCH (08:37)
[2021-03-23] MEDS: APIXABAN 2.5 MG TAB PO SCH ×2 (08:38→20:33)
--- NOTE | 2021-03-23 08:50 | NUR ---
KAYODE MEDICATION ADMINISTERED PER MD ORDER, PT TOLERATED ADMINISTRATION, EDUCATION PROVIDED, PT VERBALIZED UNDERSTANDING. PT IS SITTING IN BED EATING BREAKFAST SATING AT 89%. PT PROVIDED WITH BATHING MATERIAL FOR A BEDSIDE BATH, AND ORAL CARE. PROVIDED PT WITH CLEAN SHEETS AND GOWN. PT REPORTS ALL NEEDS MET AT THIS TIME. ALL COVID PRECAUTIONS IN PLACE, ALL SAFETY MEASURES IN PLACE. CALL LIGHT WITHIN REACH. WILL CONTINUE TO MONITOR.
--- NOTE | 2021-03-23 10:48 | NUR ---
PT SHEETS HAS BEEN CHANGED, AND GOWN. 1 BM NOTED IN BEDSIDE COMMODE. PT EDUCATED ON INCENTIVE SPIROMETER, PT RETURN DEMONSTRATION. PT IS SATING AT 91%. ALL SAFETY MEASURES IN PLACE, CALL LIGHT WITHIN REACH. WILL CONTINUE TO MONITOR.
--- NOTE | 2021-03-23 11:58 | NUR ---
WINDOW OPENED FOR FAMILY MEMBER. PT IS STABLE AND SATING AT 91%. ALL SAFETY MEASURES IN PLACE. CALL LIGHT WITHIN REACH. WILL CONTINUE TO MONITOR.
[2021-03-23 12:00] VITALS: BP 107/67
[2021-03-23 13:10] LABS: BASOPHILS % (AUTO) 0.2 % (0.0-2.0); EOSINOPHILS # (AUTO) 0.2 K/uL (0-0.4); HEMATOCRIT 41.5 % (36-52); LYMPHOCYTES # (AUTO) 1.7 K/uL (2.0-11.5); LYMPHOCYTES % (AUTO) 10.7 % (20.5-51.1); MEAN CORPUSCULAR HEMOGLOBIN 30 pg (27-31); MEAN CORPUSCULAR HGB CONC 34 g/dL (33-37); MONOCYTES # (AUTO) 0.8 K/uL (0.8-1.0); NEUTROPHILS # (AUTO) 13.6 K/uL (1.8-7.7); NEUTROPHILS % (AUTO) 83.1 % (42.2-75.2); PLATELET COUNT (AUTO) 404 K/uL (140-450); RED BLOOD CELL COUNT(AUTO) 4.66 MIL/uL (4.20-6.10); WHITE BLOOD COUNT (AUTO) 16.3 K/uL (4.8-10.8)
--- NOTE | 2021-03-23 13:54 | NUR ---
PT IS STABLE IN BED WITH NO ACUTE S/S OF DISTRESS. CHEST RISING AND FALLING EVEN AND UNLABORED SATING AT 91%. ALL SAFETY MEASURES IN PLACE, CALL LIGHT WITHIN REACH. WILL CONTINUE TO MONITOR.
--- NOTE | 2021-03-23 15:24 | NUR ---
PT IN PRONE POSITION, SATING AT 96-98%. CHEST RISING AND FALLING EVEN AND UNLABORED. ALL SAFETY MEASURES IN PLACE, CALL LIGHT WITHIN REACH. WILL CONTINUE TO MONITOR.
[2021-03-23 16:00] VITALS: BP 111/72
[2021-03-23] MEDS: DEXAMETHASONE 4 MG/ML VIAL IVP SCH (18:13)
--- NOTE | 2021-03-23 18:21 | NUR ---
KAYODE MEDICATION ADMINISTERED PER MD ORDER. PT IS SATING AT 91% ON 15L NC. ALL SAFETY MEASURES IN PLACE, CALL LIGHT WITHIN REACH. WILL CONTINUE TO MONITOR.
--- NOTE | 2021-03-23 19:27 | NUR ---
PT ENDORSED TO BOAT OAR MAKER NURSE FOR CONTINUITY OF CARE, POC DISCUSSED ALL SAFETY MEASURES IN PLACE. CALL LIGHT WITHIN REACH. WILL CONTINUE TO MONITOR.
[2021-03-23 20:00] VITALS: BP 105/65
[2021-03-23] MEDS: LORazepam 2 MG/ML VIAL IVP PRN (20:34)
[2021-03-23] MEDS: TEMAZEPAM 15 MG CAP PO SCH (22:18)
[2021-03-24] VITALS: BP 98/59
[2021-03-24 04:00] VITALS: BP 111/62
[2021-03-24] MEDS ORDERED: metroNIDAZOLE 500 MG/NS PREMIX 100 ML IV ONE (05:52)
[2021-03-24 06:39] LABS: EOSINOPHILS % (AUTO) 0.1 % (0.0-4.0); HEMATOCRIT 41.7 % (36-52); LYMPHOCYTES # (AUTO) 0.7 K/uL (2.0-11.5); MEAN CORPUSCULAR HEMOGLOBIN 30 pg (27-31); MEAN CORPUSCULAR HGB CONC 34 g/dL (33-37); MEAN CORPUSCULAR VOLUME 88.7 fL (80-94); MONOCYTES # (AUTO) 0.6 K/uL (0.8-1.0); MONOCYTES % (AUTO) 4.1 % (1.7-9.3); NEUTROPHILS # (AUTO) 13.4 K/uL (1.8-7.7); NEUTROPHILS % (AUTO) 90.8 % (42.2-75.2); PLATELET COUNT (AUTO) 413 K/uL (140-450); RED CELL DISTRIBUTION WIDTH 13.4 % (11.6-13.7); WHITE BLOOD COUNT (AUTO) 14.7 K/uL (4.8-10.8)
--- NOTE | 2021-03-24 07:17 | NUR ---
RECEIVED REPORT FROM NIGHT NURSE, PT IS ALERT ORIENTED X 4, SINUS RHYTHM, REGULAR DIET, IV ACCESS ON L FOREARM. SKIN IS INTACT. ON CURAPLEX 15 L OXYGEN, O2 SAT IS 94%. PT DENIES PAIN AND DISCOMFORT. POC DISCUSSED WILL CONTINUE TO MONITOR PT.
[2021-03-24 08:00] VITALS: BP 118/72
[2021-03-24] MEDS: ASCORBIC ACID 500 MG TAB PO SCH (08:26)
[2021-03-24] MEDS: VITAMIN D 400 IU TAB PO SCH (08:26)
[2021-03-24] MEDS: MULTIVITAMIN 1 TAB PO SCH (08:26)
[2021-03-24] MEDS: LORazepam 2 MG/ML VIAL IVP PRN ×2 (08:27→21:04)
[2021-03-24] MEDS: APIXABAN 2.5 MG TAB PO SCH (08:29)
--- NOTE | 2021-03-24 09:30 | NUR ---
ADMINISTERED ALL PRESCRIBED MEDICATIONS PER MD ORDER. PT WAS ANXIOUS ON MORNING ASSESSMENT. ATIVAN GIVEN PER MD ORDER. WILL CONTINUE TO MONITOR PT.
[2021-03-24 09:53] LABS: ALBUMIN 2.9 g/dL (3.4-5.0); ANION GAP 15.4 (8-16); CARBON DIOXIDE 22.8 mmol/L (21-32); CREATININE 0.7 mg/dL (0.6-1.3); POTASSIUM 4.2 mmol/L (3.5-5.1); TOTAL BILIRUBIN 0.4 mg/dL (0.0-1.0)
--- NOTE | 2021-03-24 11:00 | NUR ---
PT IS IN THE BED TALKING OVER THE PHONE WITH FAMILY. PT ASKED QUESTIONS ABOUT HIS DISCHARGED. EDUCATED PT ABOUT IS OXYGEN FLOW AND O2 SAT. PT VERBALIZED THE UNDERSTANDING OF IMPORTANCE OF HIS STAY IN HOSPITAL. WILL CONTINUE TO ASSESS THE PT.
[2021-03-24 12:00] VITALS: BP 117/69
--- NOTE | 2021-03-24 13:00 | NUR ---
PT'S FAMILY BROUGHT FOOD FOR HIM, PICKED IT FROM THE FRONT LOBBY AN HANDED IT OVER TO THE PT.
[2021-03-24 16:00] VITALS: BP 117/69
[2021-03-24] MEDS: DEXAMETHASONE 4 MG/ML VIAL IVP SCH (16:47)
--- NOTE | 2021-03-24 19:00 | NUR ---
RECEIVED REPORT FROM NURSE IN BED, ALERT ORIENTED X 4, SINUS RHYTHM, REGULAR DIET, IV ACCESS ON L FOREARM. SKIN IS INTACT. ON CURAPLEX 15 L OXYGEN, O2 SAT IS 95%. PT DENIES PAIN AND DISCOMFORT. POC DISCUSSED WILL CONTINUE TO MONITOR PT. DISCUSSED WITH PATIENT MEDICATION REGIMEN, FALL AND SAFETY PRECAUTIONS AND MEDICAL PLAN OF CARE. NO ACUTE DISTRESS NOTED. RN WILL CONTINUE WITH SKILLED MEDICAL CARE.
--- NOTE | 2021-03-24 19:35 | NUR ---
ENDORSED THE NIGHT NURSE CONTINUITY OF CARE. PT IS STABLE.
[2021-03-24 20:00] VITALS: BP 118/70
[2021-03-24] MEDS: TEMAZEPAM 15 MG CAP PO SCH (23:40)
[2021-03-25] VITALS: BP 118/72
--- NOTE | 2021-03-25 | NUR ---
PT IS IN THE BED ON THE PHONE WITH FAMILY. PT ASKED QUESTIONS ABOUT HIS DISCHARGED. EDUCATED PT ABOUT IS OXYGEN FLOW AND O2 SAT. PT VERBALIZED THE UNDERSTANDING OF IMPORTANCE OF HIS STAY IN HOSPITAL. WILL CONTINUE TO ASSESS THE PT. NO ACUTE DISTRESS NOTED.
--- NOTE | 2021-03-25 | NUR ---
ADMINISTERED ALL PRESCRIBED MEDICATIONS PER MD ORDER. PT WAS ANXIOUS ON ASSESSMENT. ATIVAN GIVEN PER MD ORDER. WILL CONTINUE TO MONITOR PT. PATIENT SLEEPING COMFORTABLY WITH NO DISTRESS NOTED.
[2021-03-25 04:00] VITALS: BP 116/62
[2021-03-25 06:31] LABS: BASOPHILS % (AUTO) 0.1 % (0.0-2.0); HEMATOCRIT 40.2 % (36-52); HEMOGLOBIN 13.7 g/dL (12.0-18.0); LYMPHOCYTES % (AUTO) 5.4 % (20.5-51.1); MEAN CORPUSCULAR HEMOGLOBIN 30 pg (27-31); MEAN CORPUSCULAR HGB CONC 34 g/dL (33-37); MEAN CORPUSCULAR VOLUME 87.4 fL (80-94); MONOCYTES # (AUTO) 1.1 K/uL (0.8-1.0); MONOCYTES % (AUTO) 5.8 % (1.7-9.3); NEUTROPHILS # (AUTO) 16.2 K/uL (1.8-7.7); NEUTROPHILS % (AUTO) 88.7 % (42.2-75.2); PLATELET COUNT (AUTO) 401 K/uL (140-450); RED CELL DISTRIBUTION WIDTH 13.3 % (11.6-13.7); WHITE BLOOD COUNT (AUTO) 18.3 K/uL (4.8-10.8)
[2021-03-25 07:03] LABS: ALBUMIN 2.8 g/dL (3.4-5.0); ANION GAP 11.6 (8-16); CARBON DIOXIDE 26.5 mmol/L (21-32); CREATININE 0.8 mg/dL (0.6-1.3); POTASSIUM 4.1 mmol/L (3.5-5.1); TOTAL BILIRUBIN 0.2 mg/dL (0.0-1.0)
--- NOTE | 2021-03-25 07:54 | NUR ---
RECEIVED REPORT FROM NIGHT NURSE PT IS ALERT ORIENTED X 4, LAYING IN THE BED, NO SOB NOTED. PT IS ON 15 L OXYGEN. DROPLET ISOLATION DUE TO COVID. PT HAS IV ACCESS ON LEFT HAND, 22 GAUGE. POC DISCUSSED WILL CONTINUE TO MONITOR PT.
[2021-03-25 08:00] VITALS: BP 110/68
[2021-03-25] MEDS: VITAMIN D 400 IU TAB PO SCH (08:54)
[2021-03-25] MEDS: ASCORBIC ACID 500 MG TAB PO SCH (08:55)
[2021-03-25] MEDS: MULTIVITAMIN 1 TAB PO SCH (08:55)
[2021-03-25] MEDS: LORazepam 2 MG/ML VIAL IVP PRN (08:55)
--- NOTE | 2021-03-25 09:06 | NUR ---
ADMINISTERED MEDICATIONS PER MD ORDER. PT IS O2 SAT 92%. WILL CONTINUE TO MONITOR.
--- NOTE | 2021-03-25 09:06 | NUR ---
PT WAS ANXIOUS ON MORNING ASSESSMENT ADMINISTERED ATIVAN PER MD ORDER.WILL CONTINUE TO ASSESS PT.
--- NOTE | 2021-03-25 10:30 | NUR ---
PT IS IN THE BED, USING CELL PHONE, DENIES PAIN AND DISCOMFORT. WILL CONTINUE TO MONITOR PT.
[2021-03-25 12:00] VITALS: BP 113/61
--- NOTE | 2021-03-25 13:00 | NUR ---
PT WANTS TO LEAVE AMA, HE IS ON HIGH FLOW OXYGEN, COVID POSITIVE, EDUCATED PT ABOUT RISK VS. BENEFITS OF LEAVING THE HOSPITAL. PT WANTS TO TALK TO DOCTOR. MADE DOCTOR AWARE OF PT'S DESIRE TO LEAVE THE HOSPITAL.
--- NOTE | 2021-03-25 14:00 | NUR ---
PT LEFT AMA, EDUCATED PT ABOUT HIGH RISK OF HYPOXIA AND RISK OF EXPOSING FAMILY MEMBERS TO COVID. PT VERBALIZED THE UNDERSTANDING OF DISEASE AND RISK OF CONTAMINATION, AND PREFER TO LEAVE AMA. DC THE IV, GAVE ALL BELONGING TO THE PT, MASK PROVIDED, AND WALKED PT TO THE FRONT LOBBY.
== END 2021-03-25 14:20 | disposition left against medical advice (07) | DRG 720 ==
LOC: MED 12:34 → MTU 17:27 → MMU 03-17 18:08
PROVIDERS: ADMIT Internal Medicine; ATTEND Internal Medicine
PROC: XW033E5 Introduction of Remdesivir Anti-infective into Peripheral Vein, Percutaneous Approach, New Technology Group 5 (ICD-10-PCS; principal; 2021-03-17)
PROC: 5A0935A Assistance with Respiratory Ventilation, Less than 24 Consecutive Hours, High Flow/Velocity Cannula (ICD-10-PCS; 2021-03-18)
PROC: 5A0935A Assistance with Respiratory Ventilation, Less than 24 Consecutive Hours, High Flow/Velocity Cannula (ICD-10-PCS; 2021-03-19)
PROC: 5A0935A Assistance with Respiratory Ventilation, Less than 24 Consecutive Hours, High Flow/Velocity Cannula (ICD-10-PCS; 2021-03-20)
PROC: 5A0935A Assistance with Respiratory Ventilation, Less than 24 Consecutive Hours, High Flow/Velocity Cannula (ICD-10-PCS; 2021-03-21)
PROC: 5A0935A Assistance with Respiratory Ventilation, Less than 24 Consecutive Hours, High Flow/Velocity Cannula (ICD-10-PCS; 2021-03-23)
DX: A41.9 Sepsis, unspecified organism (principal); J96.01 Acute respiratory failure with hypoxia; J12.82 Pneumonia due to coronavirus disease 2019; U07.1 COVID-19; D68.59 Other primary thrombophilia; R74.01 Elevation of levels of liver transaminase levels; Z82.49 Family history of ischemic heart disease and other diseases of the circulatory system
CPT/HCPCS: 36415; 36600; 71045; 80048; 80053; 80076; 82550; 82728; 82803; 83605; 83615; 83735; 85025; 85379; 85384; 86140; 87081; 87420; 96374; 99291; J0456; J0696; J1100; J2060; J3490; J7060; Q0092; U0003